=== PATIENT | male | born 1930 | race Caucasian/White ===

== ENCOUNTER → 2016-10-08 | Outpatient (CLI) | payer OTHER, BC | LOC: FIMAGING 13:02 | PROVIDERS: ATTEND Physical Medicine & Rehabilitation | DX: M54.81 Occipital neuralgia (principal); R93.8 Abnormal findings on diagnostic imaging of other specified body structures; M25.78 Osteophyte, vertebrae; M48.02 Spinal stenosis, cervical region; Z98.1 Arthrodesis status ==

== ENCOUNTER → 2018-01-11 | Outpatient (CLI) | payer OTHER, BC | LOC: BHFA 10:45 | PROVIDERS: ATTEND Internal Medicine Cardiovascular Disease | DX: I35.1 Nonrheumatic aortic (valve) insufficiency (principal) ==